=== PATIENT | male | born 1980 | race Caucasian/White ===

== ENCOUNTER 2017-04-02 10:05 | Emergency (ER) | payer OTHER ==
[2017-04-02 10:09] VITALS: BP 116/78; PULSE 77; O2SAT 99; BMI 21.7
[2017-04-02 10:21] VITALS: RESP 18; TEMP 97
[2017-04-02] MEDS ORDERED: Sodium Chloride 0.9% 1,000 ML IV STA (10:51)
--- NOTE | 2017-04-02 10:56 | ED PDOC ---
HPI: Abdomen Time Seen by Provider: 04/02/17 10:22 Chief Complaint (Nursing): Abdominal Pain Chief Complaint (Provider): LEft sided abdominal pain, localized, intermittent History Per: Patient History/Exam Limitations: no limitations Onset/Duration Of Symptoms: Days (2 weeks ) Outside of [place] travel?: No Current Symptoms Are (Timing): Gone Now Location Of Pain/Discomfort: Other (Left middle abdomen) Associated Symptoms: denies: Fever, Chills, Nausea, Vomiting, Diarrhea, Loss Of Appetite Additional Complaint(s): PT stastes his glucose was also 400 this morning, which is common for him. Pt has appointment with PMD in 2 weeks. Past Medical History Reviewed: Historical Data, Nursing Documentation, Vital Signs Vital Signs: Last Vital Signs Temp 97.0 F L 04/02/17 10:19 Pulse 77 04/02/17 10:19 Resp 18 04/02/17 10:19 BP 116/78 04/02/17 10:19 Pulse Ox 99 04/02/17 10:56 - Medical History PMH: Diabetes, HTN, Hypercholesterolemia - Surgical History Surgical History: No Surg Hx - Family History Family History: States: Diabetes (father) - Living Arrangements Living Arrangements: With Family - Social History Current smoker - smoking cessation education provided: No Alcohol: None Drugs: Denies - Immunization History Hx Influenza Vaccination: No - Home Medications Home Medications: Ambulatory Orders Medication Instructions Recorded Lisinopril [Lisinopril] 10 mg PO DAILY 08/29/14 Metformin HCl [Metformin] 500 mg PO BID #0 tab 08/29/14 Repaglinide [Prandin] 2 mg PO BID #0 tab 08/29/14 Simvastatin [Simvastatin] 40 mg PO HS 08/29/14 Famotidine [Pepcid] 20 mg PO BID #20 tab 12/09/14 - Allergies Allergies/Adverse Reactions: Allergies Allergy/AdvReac Type Severity Reaction Status Date / Time No Known Allergies Allergy Verified 12/09/14 09:56 Review of Systems ROS Statement: Except As Marked, All Systems Reviewed And Found Negative Constitutional: Negative for: Fever, Chills Gastrointestinal: Positive for: Abdominal Pain. Negative for: Nausea, Vomiting Physical Exam - Reviewed Nursing Documentation Reviewed: Yes Vital Signs Reviewed: Yes - Physical Exam Appears: Positive for: Well, Non-toxic, No Acute Distress Head Exam: Positive for: ATRAUMATIC, NORMAL INSPECTION, NORMOCEPHALIC Skin: Positive for: Normal Color, Warm, DRY Eye Exam: Positive for: Normal appearance ENT: Positive for: Normal ENT Inspection Neck: Positive for: Normal, Painless ROM Cardiovascular/Chest: Positive for: Regular Rate, Rhythm Respiratory: Positive for: Normal Breath Sounds. Negative for: Accessory Muscle Use, Respiratory Distress Gastrointestinal/Abdominal: Positive for: Normal Exam, Bowel Sounds, Soft. Negative for: Tenderness Back: Positive for: Normal Inspection Extremity: Positive for: Normal ROM Neurologic/Psych: Positive for: Alert, Oriented - Laboratory Results Result Diagrams: 04/02/17 11:15 04/02/17 11:15 - ECG O2 Sat by Pulse Oximetry: 99 Disposition - Clinical Impression Clinical Impression: Hyperglycemia due to type 2 diabetes mellitus, Abdominal pain - Patient ED Disposition Is Patient to be Admitted: No Counseled Patient/Family Regarding: Diagnosis, Need For Followup - Disposition Referrals: Maximus Balderas MD, PhD [Staff Provider] - Disposition: Routine/Home Disposition Time: 15:03 Condition: STABLE Instructions: Acute Abdominal Pain (ED) Forms: [employer] (Filipino)
[2017-04-02 11:32] LABS: ALB/GLOB RATIO 1.3 (1.0-2.1); ALBUMIN 4.5 g/dL (3.5-5.0); ALT/SGPT 56 U/L (21-72); AST/SGOT 22 U/L (17-59); BASO % 0.4 % (0.0-2.0); BLOOD UREA NITROGEN 16 mg/dl (9-20); CALCIUM 9.6 mg/dL (8.4-10.2); EOS # 0.1 K/uL (0.0-0.7); EOS % 1.4 % (0.0-4.0); GFR AFRICAN-AMERICAN > 60; GFR NON-AFRICAN AMERICAN > 60; HEMOGLOBIN 16.6 g/dL (12.0-18.0); LYMPH # 1.1 K/uL (1.0-4.3); LYMPH % 26.1 % (20.0-40.0); MEAN CELL VOLUME 83.7 fl (80.0-94.0); MEAN CORPUSCULAR HEMOGLOBIN 28.5 pg (27.0-31.0); MEAN CORPUSCULAR HGB CONC 34.1 g/dL (33.0-37.0); MEAN PLATELET VOLUME 8.6 fl (7.2-11.7); MONO # 0.2 K/uL (0.0-0.8); MONO % 6.1 % (0.0-10.0); NEUT # 2.7 K/uL (1.8-7.0); NRBC % 0.1 % (0.0-0.0); RBC 5.8 Mil/uL (4.40-5.90); RED CELL DISTRIBUTION WIDTH 13.4 % (11.5-14.5); WHITE BLOOD COUNT 4.1 K/uL (4.8-10.8)
[2017-04-02] MEDS ORDERED: Insulin Regular 100 units/ml IV STA (13:48)
== END 2017-04-02 15:25 | disposition home or self-care (01) ==
LOC: H.ER 10:05
DX: R10.9 Unspecified abdominal pain (principal); E11.65 Type 2 diabetes mellitus with hyperglycemia; Z79.84 Long term (current) use of oral hypoglycemic drugs; E78.00 Pure hypercholesterolemia, unspecified; I10 Essential (primary) hypertension
CPT/HCPCS: 80053; 82948; 85025; 99282; J7040